=== PATIENT | female | born 1960 | race American Indian/Alaskan Native ===

== ENCOUNTER 2018-09-26 16:50 | Inpatient (IN) | payer BC ==
--- NOTE | 2018-09-26 16:53 | Event Note ---
ED Screening Note ED Screening Note: DYSPHAGIA FOR 4-5 DAYS CAN NOT FIND WORDS PMH NONE RX NONE HR 50 ON NO MEDS OBESE AA 58YO This initial assessment/diagnostic orders/clinical plan/treatment(s) is/are subject to change based on patients health status, clinical progression and re- assessment by fellow clinical providers in the ED. Further treatment and workup at subsequent clinical providers discretion. Patient/guardian urged not to elope from the ED as their condition may be serious if not clinically assessed and managed. Initial orders include: LABS UA XRAY CT HEAD EKG BLOOD GLUCOSE 201
--- NOTE | 2018-09-26 17:48 | XRay Report ---
CHEST 1 VIEW 5:28 PM INDICATION / CLINICAL INFORMATION: Altered mental status. Concern for pneumonia. COMPARISON: None available. FINDINGS: SUPPORT DEVICES: None. HEART / MEDIASTINUM: There is mild cardiomegaly. Pulmonary vasculature is normal. LUNGS / PLEURA: No significant pulmonary or pleural abnormality. No pneumothorax. ADDITIONAL FINDINGS: No significant additional findings. IMPRESSION: No acute findings. Signer Name: Johnny Bonner MD Signed: 09/26/2018 5:43 PM Workstation Name: [id number]
--- NOTE | 2018-09-26 17:49 | Cat Scan Report ---
CT HEAD WITHOUT CONTRAST INDICATION / CLINICAL INFORMATION: Altered Mental Status. TECHNIQUE: All CT scans at this location are performed using CT dose reduction for ALARA by means of automated e xposure control. COMPARISON: None available. FINDINGS: HEMORRHAGE: No evidence of intracranial hemorrhage or extra-axial fluid collection. EXTRA-AXIAL SPACES: Cortical sulci, sylvian fissures and basilar cisterns have an unremarkable appear ance. VENTRICULAR SYSTEM: The ventricular system is of normal size and configuration. CEREBRAL PARENCHYMA: There is evidence of remote small deep infarction in the white matter of the cor rosy radiata and centrum semiovale on the right. There is also evidence of remote small deep infarctio n involving the lateral aspect of the right thalamus. No additional areas of abnormal brain parenchym al attenuation are identified. There is no indication of recent infarction. MIDLINE SHIFT OR HERNIATION: There is no mass effect. CEREBELLUM / BRAINSTEM: Brainstem and cerebellum have an unremarkable appearance. INTRACRANIAL VESSELS:No abnormalities are identified on this noncontrast head CT. ORBITS: visualized portions of the orbits have an unremarkable appearance. SOFT TISSUES of HEAD: No significant abnormality. CALVARIUM: Evaluation of bone windows reveals no abnormalities. PARANASAL SINUSES / MASTOID AIR CELLS: Paranasal sinuses are free from inflammatory mucosal disease. Mastoid air cells are normally pneumatized. ADDITIONAL FINDINGS: None. IMPRESSION: 1. Several remote small deep infarctions are identified. 2. No acute intracranial abnormalities are observed. Signer Name: Dale Orellana MD Signed: 09/26/2018 5:44 PM Workstation Name: [id number]
[2018-09-26 17:56] LABS: Basophils % (Auto) 0.6 % (0.0-1.8); Hematocrit 43.3 % (30.3-42.9); Hemoglobin 14.4 gm/dl (10.1-14.3); Lymphocytes # (Auto) 1.9 K/mm3 (1.2-5.4); Lymphocytes % (Auto) 29.4 % (13.4-35.0); Mean Corpuscular HGB Conc 33 % (30-34); Mean Corpuscular Volume 90 fl (79-97); Monocytes # (Auto) 0.1 K/mm3 (0.0-0.8); Monocytes % (Auto) 1.5 % (0.0-7.3); Platelet Count 154 K/mm3 (140-440); Red Cell Distribution Width 13.4 % (13.2-15.2)
[2018-09-26] MEDS ORDERED: BABY ASPIRIN PO ONE (18:06)
--- NOTE | 2018-09-26 18:08 | Emergency Department Report ---
HPI - General Chief Complaint: Altered Mental Status Time Seen by Provider: 09/26/18 16:52 - HPI HPI: 58-year-old female presents to the emergency department, brought in by her , for concern of a possible stroke. The patient has b een experiencing for 5 days of some confusion, forgetfulness and what sounds like expressive aphasia. The patient has been says that she is unable to find the words for what she is trying to say and while they can understand her she is continuously mixing up words. His has been getting progressively worse and the says that it was not so apparent over the first few days, which is why they waited until today to come in to be seen. She has a past medical history of acid reflux. She has a recent left hip pain for which she saw a Dr Raudel Hinds. They deny any facial droop, numbness or obvious motor deficits. No recent travel or sick contacts at home. She denies any significant headache, blurry vision, fever. ED Past Medical Hx - Past Medical History Previous Medical History?: Yes Hx GERD: Yes - Surgical History Past Surgical History?: Yes Hx Breast Surgery: (reduction) Additional Surgical History: breast reduction, hernia repair - Social History Smoking Status: Never Smoker Substance Use Type: None - Medications Home Medications: Home Medications Medication Instructions Recorded Confirmed Last Taken Type No Known Home Medications [No 10/14/12 09/26/18 Unknown History Reported Home Medications] ED Review of Systems ROS: Stated complaint: POSS STROKE Other details as noted in HPI Comment: All other systems reviewed and negative Constitutional: denies: chills, fever Eyes: denies: eye pain, vision change ENT: denies: ear pain, throat pain Respiratory: denies: cough, shortness of breath Cardiovascular: denies: chest pain, palpitations Gastrointestinal: denies: abdominal pain, vomiting Genitourinary: denies: dysuria, discharge Musculoskeletal: denies: back pain, arthralgia Skin: denies: rash, lesions Neurological: confusion, other (aphasia) Physical Exam - Physical Exam Vital Signs: Vital Signs 09/26/18 16:56 Temperature 98.4 F Pulse Rate 51 L Respiratory 18 Rate Blood Pressure 170/73 O2 Sat by Pulse 99 Oximetry Physical Exam: GENERAL: The patient is well-developed well-nourished. HENT: Normocephalic. Atraumatic. Patient has moist mucous membranes. EYES: Extraocular motions are intact. Pupils equal reactive to light bilaterally. No nystagmus. NECK: Supple. Trachea is midline. CHEST/LUNGS: Clear to auscultation. There is no respiratory distress noted. HEART/CARDIOVASCULAR: Regular. There is no tachycardia. There is no murmur. ABDOMEN: Abdomen is soft, nontender. Patient has normal bowel sounds. There is no abdominal distention. SKIN: Skin is warm and dry. NEURO: The patient is awake, alert, and oriented. The patient is cooperative. The patient has no focal neurologic deficits. Patient has some mild expressive aphasia. No dysarthria. No facial asymmetry. No pronator drift or dysmetria. MUSCULOSKELETAL: There is no tenderness or deformity. There is no limitation range of motion. There is no evidence of acute injury. ED Course Vital Signs 09/26/18 16:56 Temperature 98.4 F Pulse Rate 51 L Respiratory 18 Rate Blood Pressure 170/73 O2 Sat by Pulse 99 Oximetry ED Medical Decision Making - Lab Data Result diagrams: 09/26/18 17:41 09/26/18 17:41 - EKG Data -: EKG Interpreted by Me EKG shows normal: sinus rhythm, axis, intervals, QRS complexes, ST-T waves Rate: bradycardia (52 bpm) - EKG Data When compared to previous EKG there are: no significant change Interpretation: unchanged when compared t (07/22/13) - Radiology Data Radiology results: report reviewed, image reviewed interpreted by me: Chest x-ray does not show any acute process. There are no pleural effusions, obvious pneumonia and there is no pneumothorax. CT HEAD WITHOUT CONTRAST INDICATION / CLINICAL INFORMATION: Altered Mental Status. TECHNIQUE: All CT scans at this location are performed using CT dose reduction for ALARA by means of automated exposure control. COMPARISON: None available. FINDINGS: HEMORRHAGE: No evidence of intracranial hemorrhage or extra-axial fluid collection. EXTRA-AXIAL SPACES: Cortical sulci, sylvian fissures and basilar cisterns have an unremarkable appearance. VENTRICULAR SYSTEM: The ventricular system is of normal size and configuration. CEREBRAL PARENCHYMA: There is evidence of remote small deep infarction in the white matter of the peck radiata and centrum semiovale on the right. There is also evidence of remote small deep infarction involving the lateral aspect of the right thalamus. No additional areas of abnormal brain parenchymal attenuation are identified. There is no indication of recent infarction. MIDLINE SHIFT OR HERNIATION: There is no mass effect. CEREBELLUM / BRAINSTEM: Brainstem and cerebellum have an unremarkable appearance. INTRACRANIAL VESSELS:No abnormalities are identified on this noncontrast head CT. ORBITS: visualized portions of the orbits have an unremarkable appearance. SOFT TISSUES of HEAD: No significant abnormality. CALVARIUM: Evaluation of bone windows reveals no abnormalities. PARANASAL SINUSES / MASTOID AIR CELLS: Paranasal sinuses are free from inflammatory mucosal disease. Mastoid air cells are normally pneumatized. ADDITIONAL FINDINGS: None. IMPRESSION: 1. Several remote small deep infarctions are identified. 2. No acute intracranial abnormalities are observed. - Medical Decision Making This patient presents to the emergency department for evaluation of possible stroke after she has been having some progressively worsening expressive aphasia over the past few days. She has a 1 on the NIH stroke scale. CT of the head wi thout contrast shows some remote lacunar infarcts and no signs of any acute ischemia or hemorrhage. She was given a full dose aspirin after negative CT head. Labs have been unremarkable. Patient will be admitted to the hospital for further evaluation and treatment and was accepted for admission by the hospitalist service. - Differential Diagnosis CVA, TIA, MS, encephalopathy Critical Care Time: Yes Critical care time in (mins) excluding proc time.: 31 Critical care attestation.: If time is entered above; I have spent that time in minutes in the direct care of this critically ill patient, excluding procedure time. Critical care time was spent on this patient during her initial evaluation, multiple re- evaluations, ordering and interpretation of labs and imaging. Critical Care Time: 31 minutes ED Disposition Clinical Impression: Aphasia CVA (cerebral vascular accident) Qualifiers: CVA mechanism: unspecified Qualified Code(s): I63.9 - Cerebral infarction, unspecified Hypertension Qualifiers: Hypertension type: essential hypertension Qualified Code(s): I10 - Essential (primary) hypertension Disposition: OP ADMIT IP TO THIS HOSP Is pt being admited?: Yes Condition: Serious Time of Disposition: 19:00 - Assessment Assessment Interval: Baseline - Level of Consciousness 1a. Level of Consciousness: alert/keenly responsive - LOC Questions 1b. LOC Questions: answers both correctly - LOC Command 1c. LOC Commands: performs tasks correctly - Best Gaze 2. Best Gaze: normal - Visual 3. Visual: no visual loss - Facial Palsy 4. Facial Palsy: normal symmetrical movement - Motor Arm 5a. Motor Arm Left: no drift 5b. Motor Arm Right: no drift - Motor Leg 6a. Motor Leg Left: no drift 6b. Motor Leg Right: no drift - Limb Ataxia 7. Limb Ataxia: absent - Sensory 8. Sensory: normal - Best Language 9. Best Language: mild/moderate aphasia - Dysarthria 10. Dysarthria: normal - Extinction and Inattention 11. Extinction/Inattention: no abnormality - Scoring Total Score: 1 Stroke Severity: Minor Stroke
[2018-09-26 18:23] LABS: Alanine Aminotransferase 21 units/L (7-56); Albumin 4.2 g/dL (3.9-5); BUN/Creatinine Ratio 16; Blood Urea Nitrogen 13 mg/dL (7-17); Calcium 9.6 mg/dL (8.4-10.2); Hemolysis Index 21
[2018-09-26] MEDS ORDERED: TORADOL IV ONE (20:02)
[2018-09-26] MEDS ORDERED: APRESOLINE IV ONE (20:02)
[2018-09-26] MEDS ORDERED: TORADOL ONE (20:08)
[2018-09-26] MEDS ORDERED: APRESOLINE ONE (20:08)
[2018-09-26] MEDS ORDERED: ZOFRAN IV PRN (21:54)
[2018-09-26] MEDS ORDERED: APRESOLINE IV SCH (22:00)
[2018-09-27] MEDS ORDERED: APRESOLINE IV PRN (00:17)
[2018-09-27] MEDS ORDERED: PERCOCET 5/325 PO PRN (00:37)
[2018-09-27] MEDS ORDERED: D50W (25GM) Syringe IV PRN ×2 (06:15→12:16)
--- NOTE | 2018-09-27 06:37 | History and Physical Report ---
CHIEF COMPLAINT: Change in mental status. Other complaint includes speech impairment. HISTORY OF PRESENT ILLNESS: The patient is a 58-year-old female brought in by the because of concern for possible stroke. The patient's said that she has been having change in mental status, going on for 5 days and has not been able to talk effectively with an expressive aphasia. According to the , the patient has some confusion and unable to understand simple conversation and express herself. There is no history of weakness of any part of the body. No history of chest pain, shortness of breath, fever, chills, nausea or vomiting. The said that the patient's condition was not clear to him initially and he waited for some time, but when the patient became more progressively confused and unable to comprehend certain simple discussions, then he became concerned and brought the patient to the Emergency Room. also said that the patient has been having left hip pain and the patient saw primary care doctor who put the patient on some steroid tablets. There is no history of any visual impairment or dizziness. PAST MEDICAL HISTORY: Pertinent for gastroesophageal reflux disease. PAST SURGICAL HISTORY: Pertinent for breast reduction surgery and hernia repair. FAMILY HISTORY: Noncontributory. SOCIAL HISTORY: The patient does not smoke, does not drink alcohol and does not use illicit drugs. MEDICATIONS: The patient is on prednisone tablets. ALLERGIES: There are no known drug allergies. REVIEW OF SYSTEMS: CONSTITUTIONAL: There is no fever, no chills, no diaphoresis. HEENT: There is no headache or sore throat. CARDIOVASCULAR SYSTEM: There is no chest pain or orthopnea. RESPIRATORY SYSTEM: There is no shortness of breath or cough. GASTROINTESTINAL SYSTEM: There is no nausea, no vomiting, no abdominal pain, diarrhea or constipation. NEUROLOGICAL SYSTEM: Change in mental status noted. Difficulty with speech noted. No dizziness, no numbness. MUSCULOSKELETAL SYSTEM: Pain in the left hip joint area, which is chronic noted. No joint swelling. DERMATOLOGICAL SYSTEM: There is no skin rash or itching. GENITOURINARY SYSTEM: There is no dysuria, hematuria, or flank pain. Rest of system review is normal. PHYSICAL EXAMINATION: GENERAL: At the time of exam, the patient was found to be alert, oriented x 3 and not in acute distress. VITAL SIGNS: At the initial time of presentation showed temperature of 98.4 degrees Fahrenheit, pulse of 51, respirations 18, blood pressure 170/73, O2 sat of 99% on room air. HEENT: Showed pupils to be equal, round, reactive to light and accommodating. Extraocular muscles are intact. NECK: Supple with no JVD or carotid bruit. CARDIOVASCULAR SYSTEM: Showed normal first and second heart sounds with no gallops or murmurs. RESPIRATORY SYSTEM: Showed good air entry on both sides of the lungs with no abnormal breath sounds. GASTROINTESTINAL SYSTEM: Showed abdomen to be full, soft, nontender with no organomegaly or rigidity. NEUROLOGICAL SYSTEM: Showed the patient with speech impairment, but no other focal neurological deficit. MUSCULOSKELETAL SYSTEM: Showed no joint swelling or tenderness. DERMATOLOGICAL SYSTEM: Showed no skin rash. GENITOURINARY SYSTEM: Showing no costovertebral angle tenderness. PERTINENT LABORATORY AND IMAGING STUDIES: The patient had CT of the head without contrast done and this shows several remote small deep infarctions with no acute intracranial abnormalities. The patient also had chest x-ray done and chest x-ray shows no acute finding. Lab results, the patient has CBC done with normal white count, elevated hemoglobin of 14.4 and elevated hematocrit level of 43.3 with normal MCV. The patient's chemistry shows a slight increase in glucose level of 201. The patient's toxicology screen shows unremarkable alcohol level. DIAGNOSES: 1. Cerebrovascular accident. 2. Hypertension. 3. Hyperglycemia. 4. Speech impairment. PLAN OF CARE: 1. The patient will be admitted to telemetry. 2. The patient will have MRI of the brain without contrast done this morning. 3. The patient will have 2D echo and bilateral carotid Doppler done this morning. 4. The patient will have speech therapy consult done this morning for evaluation and treatment and will also have a physical therapy consult for evaluation and treatment this morning. 5. The patient will be n.p.o. until swallow test is passed. 6. The patient will be on aspirin 325 mg by mouth daily and will be on IV hydralazine 10 mg every 4 hours for blood pressure of 200/110 or more since the patient's blood pressure has to be treated with permissive hypertensive effect applied. 7. The patient DVT prophylaxis will be through sequential compressive device. 8. The patient will be on Accu-Chek q.4 hours followed by low-dose sliding scale using regular insulin coverage. JOB# [id number] OCN/NTS
[2018-09-27 06:50] LABS: Bacteria,Urine 1+ /HPF (Negative); Bilirubin,Urine NEG (Negative); Blood,Urine NEG (Negative); Color,Urine Yellow (Yellow); Protein,Urine <15 mg/dL mg/dL (Negative); Urobilinogen,Urine < 2.0 mg/dL (<2.0); WBC,Urine < 1.0 /HPF (0.0-6.0)
--- NOTE | 2018-09-27 11:57 | Vascular Lab Report ---
CVA TECHNICAL DATA: Imaging was performed from the base of the neck to the skull base using duplex sonography and color-f low imaging with emphasis on the carotid and vertebral arterial systems. RIGHT CAROTID ARTERY: The right internal carotid artery, right external carotid, and right common carotid artery all well i mauro and patent. Mild atherosclerotic plaque present at the carotid bifurcation. Right common carotid artery peak systolic velocity 98 cm per second Right internal carotid artery peak systolic velocity 111 cm per second Right internal carotid artery end diastolic velocity 30 cm per second Right internal carotid artery/right common carotid artery ratio 0.9 Vertebral artery flow is antegrade. LEFT CAROTID ARTERY The left internal carotid artery, left external carotid, and left common carotid artery all well imag ed and patent. Mild atherosclerotic plaque present at the carotid bifurcation. Left common carotid artery peak systolic velocity 80 cm per second Left internal carotid artery peak systolic velocity 92 cm per second Left internal carotid artery end diastolic velocity 29 cm per second Left internal carotid artery/right common carotid artery ratio 0.8 Normal antegrade flow of the vertebral arteries. IMPRESSION: 1 Sonographic NASCET Index This study proposed the incorporation of distal ICA flow velocity information on the conventional car otid Doppler study improving the diagnostic accuracy of PSV 1. 0 to15% diameter reduction internal carotid arteries <15% stenosis: deceleration spectral broadening with a peak systolic velocity (PSV) <125 cm/s. . 2. Normal common carotid arteries. 3. Normal external carotid arteries. 4. Antegrade flow both vertebral arteries. Sonographic NASCET Index This study proposed the incorporation of distal ICA flow velocity information on the conventional car otid Doppler study improving the diagnostic accuracy of PSV 1. * <15% stenosis: * deceleration spectral broadening with a peak systolic velocity (PSV) <125 cm/s * 16-49% stenosis: * pansystolic spectral broadening with a PSV <125 cm/s * 50-69% stenosis: * pansystolic spectral broadening with a PSV of >125 cm/s * and * end diastolic velocity (EDV) <110 cm/s or ICA/CCA PSV ratio >2 but <4 * 70-79% stenosis: * pansystolic spectral broadening with PSV >270 cm/s * or * EDV >110 cm/s * or * ICA/CCA PSV ratio >4 * 80-99% stenosis: EDV >140 cm/s * complete occlusion: no flow; terminal thump Signer Name: Nikolay Silverman MD Signed: 09/27/2018 11:52 AM Workstation Name: [id number]
[2018-09-27] MEDS ORDERED: D50W (25GM) Syringe IV ONE (12:15)
[2018-09-27] MEDS: ASPIRIN PO SCH (12:21)
--- NOTE | 2018-09-27 14:01 | Magnetic Resonance Report ---
MRI BRAIN WITHOUT CONTRAST INDICATION / CLINICAL INFORMATION: CVA. Aphasia TECHNIQUE: Multiplanar, multisequence MR images of the brain were obtained. COMPARISON: Head CT 09/26/2018. FINDINGS: BRAIN / INTRACRANIAL CONTENTS: Innumerable microhemorrhages are demonstrated in both cerebral hemispheres. Many of these are periphe ral in location being identified at the lopes-white junctions of both cerebral hemispheres. Findings s uggest the possibility of microhemorrhage secondary to amyloid angiopathy. There is evidence of remote small deep infarctions involving the judson to the right of the midline, th e right thalamus and the right peck radiata. Elsewhere microvascular ischemic changes are demonstra debbi in the white matter of both cerebral hemispheres. Ventricles and cortical sulci are normal in size and configuration. There is no mass effect. No evide nce of recent intracranial hemorrhage or extra-axial fluid collection is seen. There is no indication of remote cortical infarction. Diffusion weighted scans are negative. There is no indication of acut e ischemic injury. The brainstem and cerebellum have an unremarkable appearance. CRANIOCERVICAL JUNCTION: No abnormalities are identified at the craniocervical junction. VASCULAR FLOW-VOIDS: Normal flow-voids are present within the major intracranial vessels. ORBITS: The orbits have an unremarkable appearance. SINUSES / MASTOIDS: There is no indication of inflammatory disease in the paranasal sinuses or mastoi d air cells. ADDITIONAL FINDINGS: None. IMPRESSION: 1. Multiple microhemorrhages in a distribution suggesting a diagnosis of amyloid angiopathy. 2. Several remote small deep infarctions are identified. These are observed in the judson, right thalam us and right peck radiata. 3. No acute intracranial abnormalities are identified. Signer Name: Dale Orellana MD Signed: 09/27/2018 1:56 PM Workstation Name: [id number]
--- NOTE | 2018-09-27 15:58 | Consultation ---
History of Present Illness Consult date: 09/27/18 Requesting physician: DAVID BUSTILLO Consult reason: bradycardia History of present illness: Ms. Us is a 58 y/o female [facility] with stroke- like symptoms over the past five days. She follows with Dr. Gulshan Brambila in our office. She has a history of hypertension and had several CVAs in the past. Per her , the patient experienced worsening confusion, forgetfulness and expressive aphasia. CT and MRI revealed multiple vascular abnormalities c/w amyloid angiopathy. A carotid study was negative. Overnight, the patient experienced sinus bradycardia with rates in the 30s. On examination, she is in sinus bradycardia with rates in the 50s. She denies palpitations or dizziness. An echocardiogram on 09/27/18 found an EF of 60 to 65 percent, mild concentric LVH and no evidence of a shunt. Past History Past Medical History: stroke Medications and Allergies Allergies Allergy/AdvReac Type Severity Reaction Status Date / Time No Known Allergies Allergy Verified 09/26/18 18:28 Home Medications Medication Instructions Recorded Confirmed Last Taken Type No Known Home Medications [No 10/14/12 09/26/18 Unknown History Reported Home Medications] Active Meds: Active Medications Aspirin (Aspirin) 325 mg PO QDAY MAYA Last Admin: 09/27/18 12:21 Dose: 325 mg Documented by: Dextrose (D50w (25gm) Syringe) 50 ml IV PRN PRN PRN Reason: Hypoglycemia Hydralazine HCl (Apresoline) 10 mg IV Q4HR PRN PRN Reason: HTN>=200/110 Insulin Human Lispro (Humalog) 0 unit SUB-Q [facility]; Protocol Ondansetron HCl (Zofran) 4 mg IV Q8H PRN PRN Reason: Nausea And Vomiting Oxycodone/Acetaminophen (Percocet 5/325) 1 tab PO Q6H PRN PRN Reason: Pain, Moderate (4-6) Last Admin: 09/27/18 01:34 Dose: 1 tab Documented by: Review of Systems All systems: negative Neurological: aphasia Physical Examination Vital Signs Temp Pulse Resp BP Pulse Ox 98.4 F 51 L 18 170/73 99 09/26/18 16:56 09/26/18 16:56 09/26/18 16:56 09/26/18 16:56 09/26/18 16:56 General appearance: no acute distress HEENT: Positive: PERRL Neck: Positive: neck supple Cardiac: Positive: Regular Rhythm Lungs: Positive: Normal Exam Neuro: Positive: Other (deferred) Abdomen: Positive: Unremarkable Female genitourinary: deferred Skin: Positive: Clear Extremities: Present: normal Results 09/26/18 17:41 09/26/18 17:41 Cardiac Enzymes 09/26/18 Range/Units 17:41 AST 26 (5-40) units/L CBC 09/26/18 Range/Units 17:41 WBC 6.5 (4.5-11.0) K/mm3 RBC 4.80 (3.65-5.03) M/mm3 Hgb 14.4 H (10.1-14.3) gm/dl Hct 43.3 H (30.3-42.9) % Plt Count 154 (140-440) K/mm3 Lymph # 1.9 (1.2-5.4) K/mm3 [place] # 0.1 (0.0-0.8) K/mm3 Eos # 0.0 (0.0-0.4) K/mm3 Baso # 0.0 (0.0-0.1) K/mm3 Comprehensive Metabolic Panel 09/26/18 Range/Units 17:41 Sodium 140 (137-145) mmol/L Potassium 4.2 (3.6-5.0) mmol/L Chloride 103.1 (98-107) mmol/L Carbon Dioxide 24 (22-30) mmol/L BUN 13 (7-17) mg/dL Creatinine 0.8 (0.7-1.2) mg/dL Glucose 135 H (65-100) mg/dL Calcium 9.6 (8.4-10.2) mg/dL AST 26 (5-40) units/L ALT 21 (7-56) units/L Alkaline Phosphatase 130 H (35-129) units/L Total Protein 8.3 H (6.3-8.2) g/dL Albumin 4.2 (3.9-5) g/dL - Imaging and Cardiology Echo: pending, report reviewed (09/27/18: EF 60-65%, mild LVH, no evidence of shunt) EKG interpretations - Telemetry EKG Rhythm: Sinus Bradycardia Assessment and Plan Ms. Us is a 58 y/o female admitted with stroke-like symptoms. Overnight, she developed sinus bradycardia with rates in the 30s. We recommend monitoring on telemetry and evaluating for symptomatic bradycardia. She may also benefit from an event monitor as an outpatient. The patient was evaluated by Dr. Good, who performed the assessment and developed the plan of care. - Patient Problems (1) CVA (cerebral vascular accident) Current Visit: Yes Status: Acute Qualifiers: CVA mechanism: unspecified Qualified Code(s): I63.9 - Cerebral infarction, unspecified (2) Sinus bradycardia Current Visit: Yes Status: Acute (3) Aphasia Current Visit: Yes Status: Acute (4) Hypertension Current Visit: Yes Status: Chronic Qualifiers: Hypertension type: essential hypertension Qualified Code(s): I10 - Essential (primary) hypertension
--- NOTE | 2018-09-27 16:08 | Progress Note ---
Assessment and Plan Assessment and plan: Patient is a 58 yo woman with a history of GERD, not taking any chronic medication who presents to [facility] ED due to AMS x 5 days with confusion, forgetfulness and expressive aphasia. Word finding difficulties, so brought her to ED, * 2D ECHO: mild concentric LVH, est EF 60-65%, normal dd filing, trace MR, trace TR, no cardiac shunt * MRI brain with contrast IMPRESSION: 1. Multiple microhemorrhages in a distribution suggesting a diagnosis of amyloid angiopathy. 2. Several remote small deep infarctions are identified. These are observed in the judson, right thalamus and right peck radiata. 3. No acute intracranial abnormalities are identified. * pCXR Impression: No acute findings * CT head without contrast IMPRESSION: 1. Multiple microhemorrhages in a distribution suggesting a diagnosis of amyloid angiopathy. 2. Several remote small deep infarctions are identified. These are observed in the judson, right thalamus and right peck radiata. 3. No acute intracranial abnormalities are identified. * Carotid U/S unremarkable. -AMS most likely Acute metabolic encephalopathy, Ruled out Acute CVA, ?vascular dementia: will consult Neurologist -Severe Bradycardia, HR as low as 36: consulted Cardiology, continue telemetry -Hyperglycemia, BG >201 followed by hypoglycemia: treat with dextrose and monitor closely, check A1C -Accelerated uncontrolled hypertension, new onset: treat with anti-hyper tensives, low salt diet -Expressive Aphasia? consulted Neurology History Interval history: Patient was seen and examined. Follow-up on current diagnosis of AMS. No overnight events reported to me. Patient denies any chest pain, shortness breath, nausea/vomiting or severe headaches. Imaging, nursing note, chart, labs and old chart reviewed. Discussed with patient. Hospitalist Physical - Physical exam Narrative exam: Gen: WDWN, NAD, Awake, Alert, Orientated x 2 HEENT: NCAT, EOMI, PERRL, OP Clear Neck: supple, no adenopathy, no thyromegaly, no JVD CVS/Heart: bradycardia, normal S1S2, pulses present bilaterally Chest/Lungs: CTA B, Symmetrical chest expansion, good air entry bilaterally GI/Abdomen: soft, NTND, good bowel sounds, no guarding or rebound /Bladder: no suprapubic tenderness, no CVA or paraspinal tenderness Extermity/Skin: no c/c/e, no obvious rash MSK: FROM x 4 Neuro: CN 2-12 grossly intact, expressive aphasia Psych: calm - Constitutional Vitals: Temp Pulse Resp BP Pulse Ox 98.4 F 42 L 18 150/78 98 09/27/18 07:31 09/27/18 07:31 09/27/18 07:31 09/27/18 07:31 09/27/18 07:31 General appearance: Present: no acute distress Results - Labs CBC & Chem 7: 09/26/18 17:41 09/26/18 17:41 Labs: Laboratory Last Values WBC 6.5 K/mm3 (4.5-11.0) 09/26/18 17:41 RBC 4.80 M/mm3 (3.65-5.03) 09/26/18 17:41 Hgb 14.4 gm/dl (10.1-14.3) H 09/26/18 17:41 Hct 43.3 % (30.3-42.9) H 09/26/18 17:41 MCV 90 fl (79-97) 09/26/18 17:41 MCH 30 pg (28-32) 09/26/18 17:41 MCHC 33 % (30-34) 09/26/18 17:41 RDW 13.4 % (13.2-15.2) 09/26/18 17:41 Plt Count 154 K/mm3 (140-440) 09/26/18 17:41 Lymph % (Auto) 29.4 % (13.4-35.0) 09/26/18 17:41 [place] % (Auto) 1.5 % (0.0-7.3) 09/26/18 17:41 Eos % (Auto) 0.0 % (0.0-4.3) 09/26/18 17:41 Baso % (Auto) 0.6 % (0.0-1.8) 09/26/18 17:41 Lymph # 1.9 K/mm3 (1.2-5.4) 09/26/18 17:41 [place] # 0.1 K/mm3 (0.0-0.8) 09/26/18 17:41 Eos # 0.0 K/mm3 (0.0-0.4) 09/26/18 17:41 Baso # 0.0 K/mm3 (0.0-0.1) 09/26/18 17:41 Seg Neutrophils % 68.5 % (40.0-70.0) 09/26/18 17:41 Seg Neutrophils # 4.4 K/mm3 (1.8-7.7) 09/26/18 17:41 VBG pH 7.362 (7.320-7.420) 09/26/18 17:49 Sodium 140 mmol/L (137-145) 09/26/18 17:41 Potassium 4.2 mmol/L (3.6-5.0) 09/26/18 17:41 Chloride 103.1 mmol/L (98-107) 09/26/18 17:41 Carbon Dioxide 24 mmol/L (22-30) 09/26/18 17:41 17 mmol/L 09/26/18 17:41 BUN 13 mg/dL (7-17) 09/26/18 17:41 0.8 mg/dL (0.7-1.2) 09/26/18 17:41 Estimated GFR > 60 ml/min 09/26/18 17:41 16 % 09/26/18 17:41 Glucose 135 mg/dL (65-100) H 09/26/18 17:41 POC Glucose 63 (70-105) L 09/27/18 12:22 Negative (Negative) 09/26/18 17:41 Calcium 9.6 mg/dL (8.4-10.2) 09/26/18 17:41 0.50 mg/dL (0.1-1.2) 09/26/18 17:41 AST 26 units/L (5-40) 09/26/18 17:41 ALT 21 units/L (7-56) 09/26/18 17:41 130 units/L (35-129) H 09/26/18 17:41 < 0.010 ng/mL (0.00-0.029) 09/26/18 17:41 < 0.010 ng/mL (0.00-0.029) 09/26/18 17:41 8.3 g/dL (6.3-8.2) H 09/26/18 17:41 4.2 g/dL (3.9-5) 09/26/18 17:41 1.0 % 09/26/18 17:41 TSH 0.406 mlU/mL (0.270-4.200) 09/26/18 17:50 Yellow (Yellow) 09/27/18 06:22 Clear (Clear) 09/27/18 06:22 6.0 (5.0-7.0) 09/27/18 06:22 Ur Specific [place] 1.008 (1.003-1.030) 09/27/18 06:22 <15 mg/dl mg/dL (Negative) 09/27/18 06:22 Neg mg/dL (Negative) 09/27/18 06:22 Neg mg/dL (Negative) 09/27/18 06:22 Neg (Negative) 09/27/18 06:22 Neg (Negative) 09/27/18 06:22 Neg (Negative) 09/27/18 06:22 < 2.0 mg/dL (<2.0) 09/27/18 06:22 Ur Leukocyte Esterase Neg (Negative) 09/27/18 06:22 < 1.0 /HPF (0.0-6.0) 09/27/18 06:22 1.0 /HPF (0.0-6.0) 09/27/18 06:22 U Epithel Cells (Auto) < 1.0 /HPF (0-13.0) 09/27/18 06:22 1+ /HPF (Negative) 09/27/18 06:22 Plasma/Serum Alcohol < 0.01 % (0-0.07) 09/26/18 17:50 Active Medications - Current Medications Current Medications: Generic Name Dose Route Start Last Admin Trade Name Silvianoq PRN Reason Stop Dose Admin Aspirin 325 mg 09/27/18 10:00 09/27/18 12:21 Aspirin PO 325 mg QDAY MAYA Administration Dextrose 50 ml 09/27/18 12:16 D50w (25gm) Syringe IV PRN PRN Hypoglycemia Hydralazine HCl 10 mg 09/27/18 00:17 Apresoline IV Q4HR PRN HTN>=200/110 Insulin Human Lispro 0 unit 09/27/18 16:30 Humalog SUB-Q [facility] Protocol Ondansetron HCl 4 mg 09/26/18 21:54 Zofran IV Q8H PRN Nausea And Vomiting Oxycodone/Acetaminophen 1 tab 09/27/18 00:37 09/27/18 01:34 Percocet 5/325 PO 1 tab Q6H PRN Administration Pain, Moderate (4-6)
[2018-09-27] MEDS: HumaLOG SUB-Q SCH ×3 (18:44→21:35)
--- NOTE | 2018-09-27 18:58 | Progress Note ---
Subjective Date of service: 09/27/18 Interval history: see my note on the patient full dictation MRI area of celar cut cortical ischemia left superior temporal gyrus and distal infarcts as well there is basically OK ECHO and carotid u/s vessel occlusive disease in the MCA left exam shows severe expressive aphasia with word finding problems Objective - Vital Sign Vital Signs - 12hr 09/27/18 09/27/18 07:31 18:42 Temperature 98.4 F 98.2 F Pulse Rate 42 L 48 L Respiratory 18 20 Rate Blood Pressure 150/78 Blood Pressure 138/62 [Right] O2 Sat by Pulse 98 99 Oximetry - Laboratory Findings CBC and BMP: 09/26/18 17:41 09/26/18 17:41 Abnormal Lab Findings: Abnormal Labs 09/26/18 09/26/18 09/26/18 17:03 17:41 17:41 Hgb 14.4 H Hct 43.3 H Glucose 135 H POC Glucose 201 H Alkaline Phosphatase 130 H Total Protein 8.3 H 09/27/18 09/27/18 12:22 18:32 Hgb Hct Glucose POC Glucose 63 L 154 H Alkaline Phosphatase Total Protein
--- NOTE | 2018-09-28 00:56 | Consultation ---
HISTORY OF PRESENT ILLNESS: This is a 58-year-old female that presents to [facility] on September 20, 2018. She presented with a primary history of some confusion, difficulty with orientation, had spent several days not feeling quite like herself and not being able to speak. I have had the chance to review her MRI scan of the brain. It shows a very large area of ischemia on the left medial superotemporal gyrus and posterior infarction very significant for what is likely a stroke related to no flow. In viewing the carotid arteries, the left internal carotid are all well imaged and patent. She has no atherosclerotic clot present in the left bifurcation with no ulcer. The patient has had an echocardiogram and I have reviewed those results and does show no valvular disease, a slight concentric left ventricular hypertrophy, ejection fraction of 60-65%. No evidence of any septal defect is noted. The patient's left atrium is normal. There is no visible thrombus present. The patient does have on admission problems with speech, slowness of thought, difficulty with movements. She has clinical evidence of likely a stroke. Examination on my part does show the patient has a very prominent naming problem when she attempts to speak. She has evidence of a very slight anomic aphasia. I would test her with a number of named objects and she would get only half of them right. Interestingly, she could relatively well, but she could not actually name the objects by looking at it, but would instead read the description of it off a package which is highly interesting variation of aphasia. Her speech is quite slowed. She has occasional word substitution errors, some speech apraxia. Cranial nerves are intact. Dry Sand Molder strength is equal. Motor tone is normal. Visual collier are full. Full bus girl strength is present. She moves all extremities well, do not find any focal weakness. The patient did consistently mix words up when I spoke to her. EKG shows sinus rhythm and there is no atrial fibrillation and unchanged from the EKG present on July 22, 2013. This patient does have, on looking at the MRI scan, a very noticeable cortical ischemia in the left temporal lobe anteriorly and some lesions present distally, which would almost indicate that she has had probably several infarcts. I would treat her with aspirin, Plavix and cholesterol lowering agent. It is noted that her blood pressure was elevated on admission of 170/73. This is likely a hypertensive stroke with some vascular component, not small vessel at least, but large branch vessel of the MCA. PLAN: Further assessment. JOB# [id number] CARLINE/BONI
[2018-09-28] MEDS: HumaLOG SUB-Q SCH ×2 (08:00→12:00)
[2018-09-28] MEDS: ASPIRIN PO SCH (09:42)
--- NOTE | 2018-09-28 13:54 | Progress Note ---
Assessment and Plan The patient remains in intermittent asymptomatic sinus bradycardia that predominantly occurs at night. We recommend an event monitor as an outpatient. We have nothing further to add from a cardiac perspective and will sign off. Follow up with Dr. Good in 7-10 days. Call for an appointment. The patient has been evaluated by Dr. Good, who performed the assessment and developed the plan of care. - Patient Problems (1) CVA (cerebral vascular accident) Current Visit: Yes Status: Acute Qualifiers: CVA mechanism: unspecified Qualified Code(s): I63.9 - Cerebral infarction, unspecified (2) Sinus bradycardia Current Visit: Yes Status: Acute (3) Aphasia Current Visit: Yes Status: Acute (4) Hypertension Current Visit: Yes Status: Chronic Qualifiers: Hypertension type: essential hypertension Qualified Code(s): I10 - Essential (primary) hypertension Subjective Date of service: 09/28/18 Interval history: The patient is lying in bed in NAD. Interim bradycardia noted on telemetry, but this is asymptomatic. Objective Last Vital Signs Temp 98.4 F 09/28/18 07:31 Pulse 52 L 09/28/18 10:00 Resp 20 09/28/18 10:00 BP 147/61 09/28/18 07:31 Pulse Ox 98 09/28/18 07:31 - Physical Examination HEENT: Positive: PERRL Neck: Positive: neck supple Cardiac: Positive: Regular Rhythm Lungs: Positive: Normal Exam Neuro: Positive: Other (deferred) Abdomen: Positive: Unremarkable /Rectal: Other (deferred) Skin: Positive: Clear Musculoskeletal: No Pain Extremities: Present: normal - Imaging and Cardiology Echo: pending, report reviewed (09/27/18: EF 60-65%, mild LVH, no evidence of shunt) - Telemetry EKG Rhythm: Sinus Bradycardia
--- NOTE | 2018-09-28 16:49 | Discharge Summary ---
Providers - Providers Date of Admission: 09/26/18 18:41 Date of discharge: 09/28/18 Attending physician: DAVID BUSTILLO 09/27/18 06:00 Physical Therapy Evaluation and Treat [CONS] Routine Comment: Reason For Exam: CVA Speech Therapy Evaluation and Treat [CONS] Routine Reason For Exam: SPEECH IMPAIRMENT 09/27/18 12:18 Consult to Physician [CONS] Routine Comment: Consulting Provider: NIKA GARRIDO Physician Instructions: Reason For Exam: bradycardia 09/27/18 13:27 Midline [Consult to PICC Line RN] [CONS] Stat Reason For Exam: difficult stick Type Line:: Midline 09/27/18 16:20 Consult to Physician [CONS] Routine Comment: Consulting Provider: BALTAZAR SHABAZZ Physician Instructions: Reason For Exam: expressive aphasia, ? cva [facility] Condition: Stable Hospital course: Patient is a 58 yo woman with a history of GERD, not taking any chronic medica tion who presents to [facility] ED due to AMS x 5 days with confusion, forgetfulness and expressive aphasia. Word finding difficulties, so brought her to ED, * 2D ECHO: mild concentric LVH, est EF 60-65%, normal dd filing, trace MR, trace TR, no cardiac shunt * MRI brain with contrast IMPRESSION: 1. Multiple microhemorrhages in a distribution suggesting a diagnosis of amyloid angiopathy. 2. Several remote small deep infarctions are identified. These are observed in the judson, right thalamus and right peck radiata. 3. No acute intracranial abnormalities are identified. * pCXR Impression: No acute findings * CT head without contrast IMPRESSION: 1. Multiple microhemorrhages in a distribution suggesting a diagnosis of amyloid angiopathy. 2. Several remote small deep infarctions are identified. These are observed in the judson, right thalamus and right peck radiata. 3. No acute intracranial abnormalities are identified. * Carotid U/S unremarkable. Discharge Diagnoses -Acute CVA, per Dr. Shabazz -Severe Bradycardia, HR as low as 36: consulted Cardiology, continue telemetry, need Event monitor as outpatient d/w Dr. Garrido -Hyperglycemia, BG >201 followed by hypoglycemia: treat with dextrose and monitor closely, check A1C -Accelerated uncontrolled hypertension, new onset: treat with anti-hypert ensives, low salt diet -Expressive Aphasia Patient is adamant about going home, she does not want to stay for PT/OT or rehab assessment. Disposition: DC-01 TO HOME OR SELFCARE Time spent for discharge: 33 minutes Core Measure Documentation - Palliative Care Palliative Care/ Comfort Measures: Not Applicable - Core Measures Any of the following diagnoses?: stroke - VTE Discharge Requirements Deep Vein Thrombosis/Pulmonary Embolism Present on Admission: No Has pt received <5 days of overlap therapy or INR<2.0: No Anticoagulant overlap therapy prescribed at discharge: No Contraindication No Overlap Therapy order at DC: Not Indicated - Stroke Discharge Requirements Statin for LDL = or >70 mg/dl on DC: Yes Anticoag for atrial fib/atrial flutter: Not Applicable Reason for no anticoag for AF/F on DC: Not Indicated Antithrombotic for ischemic stroke: Yes Exam - Physical Exam Narrative exam: Gen: WDWN, NAD, Awake, Alert, Orientated x 2 HEENT: NCAT, EOMI, PERRL, OP Clear Neck: supple, no adenopathy, no thyromegaly, no JVD CVS/Heart: bradycardia, normal S1S2, pulses present bilaterally Chest/Lungs: CTA B, Symmetrical chest expansion, good air entry bilaterally GI/Abdomen: soft, NTND, good bowel sounds, no guarding or rebound /Bladder: no suprapubic tenderness, no CVA or paraspinal tenderness Extermity/Skin: no c/c/e, no obvious rash MSK: FROM x 4 Neuro: CN 2-12 grossly intact, expressive aphasia Psych: calm - Constitutional Vitals: Temp Pulse Resp BP Pulse Ox 98.4 F 46 L 20 147/61 96 09/28/18 07:31 09/28/18 12:24 09/28/18 10:00 09/28/18 07:31 09/28/18 12:24 Plan Activity: other (no strenous activity unless cleared by Associate Buyer and Neurologist) Diet: low salt Additional Instructions: Call Associate Buyer Dr. Garrido at for an appointment. Need Event Monitor. D/W Dr. Garrido and Dr. Shabazz regarding vacation trip prior to going. Check you A1C with PCP to test for Diabetes mellitus [facility] [Primary Care Provider] - 7 Days NIKA GARRIDO MD [Staff Physician] - 7 Days BALTAZAR SHABAZZ MD [Staff Physician] - 7 Days Prescriptions: AtorvaSTATin [Lipitor] 40 mg PO QHS #30 tablet Aspirin 325 mg PO QDAY #30 tablet
[2018-09-28 16:51] VITALS: BP 145/66
[2018-09-28 18:34] LABS: Chol/HDL Ratio 3.2 %
== END 2018-09-28 18:33 | disposition home or self-care (01) | DRG 65 ==
LOC: ED 16:50 → 4A 18:41
PROVIDERS: ADMIT Internal Medicine; ATTEND Internal Medicine
PROC: 05HY33Z Insertion of Infusion Device into Upper Vein, Percutaneous Approach (ICD-10-PCS; principal; 2018-09-27)
DX: I63.9 Cerebral infarction, unspecified (principal); E85.4 Organ-limited amyloidosis; R47.01 Aphasia; I10 Essential (primary) hypertension; I68.0 Cerebral amyloid angiopathy; R29.701 NIHSS score 1; R47.81 Slurred speech; K21.9 Gastro-esophageal reflux disease without esophagitis; R73.9 Hyperglycemia, unspecified; R00.1 Bradycardia, unspecified; E16.2 Hypoglycemia, unspecified
CPT/HCPCS: 36415; 70450; 70551; 71045; 80053; 80061; 80320; 81001; 82010; 82805; 82962; 84443; 84484; 85025; 93005; 93010; 93306; 93880; G0378; G0480; J0360; J1885

== ENCOUNTER 2019-04-23 07:51 | Day surgery (SDC) | payer BC ==
[~2019-04-23 07:51] MED LIST: BUPIVACAINE/PF (0.5%) 5 MG/1 ML 30 ML VIAL INFILTRATI ONE; LIDOCAINE (1%) 10 MG/1 ML VIAL 20 ML MDV INFILTRATI ONE
[2019-04-23] MEDS ORDERED: BUPIVACAINE/PF (0.5%) 5 MG/1 ML 30 ML VIAL INFILTRATI ONE ×2 (07:58→10:33)
[2019-04-23] MEDS ORDERED: LIDOCAINE (1%) 10 MG/1 ML VIAL 20 ML MDV ONE (07:58)
[2019-04-23] MEDS ORDERED: LIDOCAINE (1%) 10 MG/1 ML VIAL 20 ML MDV INFILTRATI ONE (10:07)
[2019-04-23 12:23] VITALS: BP 142/62
--- NOTE | 2019-04-23 12:26 | Fluoroscopy Report ---
Fluoroscopy guidance needle placement HISTORY: Chronic left back pain. FINDINGS: 1.02 minutes of fluoroscopy time was provided by radiology during lumbar facet/nerve block by the [facility] surgeon. 2 fluoroscopic images of the lumbar spine are presented demonstrating needle placeme nt just inferior to facet joints L1-2, L2-3, L3-4 and L4-5 on the left side. The lumbar vertebra are normal in alignment with mild degenerative changes. Please correlate with the procedural report by Dr Riky Edwards as needed. Signer Name: Jarvis Bowers Jr, MD Signed: 04/23/2019 12:22 PM Workstation Name: [id number]
--- NOTE | 2019-04-29 13:19 | Procedure Note ---
Date of procedure: 04/23/19 Pre-op diagnosis: Low back pain Post-op diagnosis: same Procedure: Lumbar facet blocks at left L2 through L5 Procedure The patient was brought to the OR and placed prone onto the OR table, the lumbar spine was prepped and draped in the usual sterile manner. A timeout procedure was done to identify the patient and the correct levels of nerve block being performed the patient was awake during the procedure. Using C-arm fluoroscopy the L5 through L2 levels were visualized in both the PA and 45 oblique views 20-gauge spinal needles were inserted again under direct fluoroscopic control after placing the spinal needles and the correct position and Marcaine injection was performed using 1% without epinephrine. The patient tolerated the procedure and no complications Anesthesia: local Surgeon: ANA REYES Estimated blood loss: minimal Pathology: none Condition: stable Disposition: observation
== END 2019-04-23 07:52 | disposition home or self-care (01) ==
LOC: OR 07:51
PROVIDERS: ATTEND Orthopaedic Surgery
DX: M54.5 Low back pain (principal); M47.816 Spondylosis without myelopathy or radiculopathy, lumbar region; I10 Essential (primary) hypertension; K21.9 Gastro-esophageal reflux disease without esophagitis; F32.9 Major depressive disorder, single episode, unspecified; F41.9 Anxiety disorder, unspecified; Z79.899 Other long term (current) drug therapy; Z79.82 Long term (current) use of aspirin; Z86.718 Personal history of other venous thrombosis and embolism; Z90.710 Acquired absence of both cervix and uterus; Z72.89 Other problems related to lifestyle; Z98.890 Other specified postprocedural states; Z86.2 Personal history of diseases of the blood and blood-forming organs and certain disorders involving the immune mechanism; Z86.73 Personal history of transient ischemic attack (TIA), and cerebral infarction without residual deficits
CPT/HCPCS: 77002

== ENCOUNTER 2019-06-04 06:55 | Day surgery (SDC) | payer BC ==
--- NOTE | 2019-06-04 07:48 | Anesthesia Consultation ---
Anesthesia Consult and Med Hx Date of service: 06/04/19 - Airway Anesthetic Teeth Evaluation: Good ROM Head & Neck: Adequate Mental/Hyoid Distance: Adequate Mallampati Class: Class II Intubation Access Assessment: Probably Good - Pre-Operative Health Status ASA Pre-Surgery Classification: ASA3 Proposed Anesthetic Plan: MAC - Pulmonary Hx Smoking: No Hx Asthma: No Hx Sleep Apnea: No (AMNA PRE SCREEN LOW RISK) - Cardiovascular System Hx Hypertension: No Hx Pacemaker: No Hx Internal Defibrillator: No - Central Nervous System Hx Neuromuscular Disorder: No Hx Seizures: No CVA: Yes (09/2018-SPEECH SL SLURRED,POOR MEMORY) Hx Back Pain: Yes (NERVE BLOCK 04/23/19) Hx Psychiatric Problems: Yes (anxiety/depression) - Gastrointestinal Hx Gastroesophageal Reflux Disease: Yes - Endocrine Hx Renal Disease: No Hx Liver Disease: Yes (CONGENTIAL HEP B) Hx Thyroid Disease: No - Hematic Hx Anemia: Yes (NOT RECENT) - Other Systems Hx Alcohol Use: Yes (glass of wine occassionally) Hx Cancer: No Hx Obesity: Yes (s/p gastric bypass 2009)
--- NOTE | 2019-06-04 07:49 | Anesthesia Day of Surgery ---
Anesthesia Day of Surgery - Day of Surgery Patient Examined: Yes Patient H&P Reviewed: Yes Patient is NPO: Yes
[2019-06-04] MEDS ORDERED: LACTATED RINGERS 1,000 ML IV SCH (08:00)
[2019-06-04] MEDS ORDERED: MIDAZOLAM 2 MG/2 ML INJ IV NR (08:00)
[2019-06-04] MEDS ORDERED: FAMOTIDINE 20 MG/2 ML INJ IV NR (08:00)
[2019-06-04] MEDS ORDERED: MIDAZOLAM 2 MG/2 ML INJ ONE (10:05)
[2019-06-04] MEDS ORDERED: propofoL 200 MG/20 ML VIAL IV ONE (10:05)
[2019-06-04] MEDS ORDERED: fentaNYL 100 MCG/2 ML INJ ONE (10:05)
[2019-06-04] MEDS ORDERED: LIDOCAINE MPF (2%) 20 MG/1 ML VIAL 5 ML ONE (10:05)
[2019-06-04] MEDS ORDERED: methylPREDNISolone ACETATE 40 MG/1 ML INJ ONE (10:08)
[2019-06-04] MEDS ORDERED: LIDOCAINE (1%) 10 MG/1 ML VIAL 20 ML MDV ONE (10:08)
[2019-06-04] MEDS ORDERED: BUPIVACAINE/PF (0.5%) 5 MG/1 ML 30 ML VIAL INFILTRATI ONE ×3 (10:08→10:44)
[2019-06-04] MEDS ORDERED: KETAMINE/STERILE WATER 50 MG/ML SYRINGE ONE (10:23)
[2019-06-04] MEDS ORDERED: LIDOCAINE (1%) 10 MG/1 ML VIAL 20 ML MDV INFILTRATI ONE ×2 (10:41→10:44)
[2019-06-04] MEDS ORDERED: methylPREDNISolone ACETATE 40 MG/1 ML INJ INTRA-ARTI ONE ×2 (10:41→10:44)
[2019-06-04] MEDS ORDERED: ONDANSETRON 4 MG/2 ML INJ ONE (10:50)
[2019-06-04] MEDS ORDERED: KETOROLAC 30 MG/1 ML INJ ONE (10:50)
[2019-06-04] MEDS ORDERED: dexAMETHasone 20 MG/5 ML VIAL ONE (10:50)
[2019-06-04] MEDS ORDERED: hydrALAZINE 20 MG/1 ML INJ IV NR (11:33)
--- NOTE | 2019-06-04 11:35 | Procedure Note ---
Date of procedure: 06/04/19 Pre-op diagnosis: Chronic low back pain Post-op diagnosis: same Procedure: Lumbar radiofrequency ablation at the left L2-5 Procedure The patient was brought to the OR and placed on the Dave frame prone with a pillow place underneath the abdomen to straighten out the lumbar spine next the lumbar spine area was prepped and draped in the usual sterile manner. A timeout procedure done to identify the patient and correct operative site Using C-arm fluoroscopy 4 lumbar pain management introducers placed in the area near the superior articular process junctions to the transverse processes AP and lateral views were used to confirm correct placement of the probes. Next motor nerves were checked to ensure that we were not next to a motor branch following this local anesthetic was used to deaden the area followed by radiofrequency ablation of the medial branch of the dorsal rami of L2 through L5 levels. This step repeated for each level until we had perform all four spots. At the completion of the fourth and final ablation the patient was awakened and was taken to postanesthesia recovery in a stable condition, there were no complications Anesthesia: other (IV sedation) Surgeon: ANA REYES Estimated blood loss: minimal Pathology: none Condition: stable Disposition: PACU
[2019-06-04] MEDS ORDERED: HYDROmorphone 1 MG/1 ML INJ ONE (11:43)
[2019-06-04] MEDS ORDERED: HYDROmorphone 1 MG/1 ML INJ IV PRN (11:53)
[2019-06-04 12:08] VITALS: BP 166/77
--- NOTE | 2019-06-04 14:25 | Post Anesthesia Evaluation ---
- Post Anesthesia Evaluation Patient Participated: Yes Airway Patent: Yes Stable Respiratory Function: Yes Nausea/Vomiting: No Temp > 96.8F: Yes Pain Manageable: Yes Adequeate Hydration: Yes Anesthesia Complications: No Block Receding Appropriately: Not Applicable Patient on Ventilator: No
--- NOTE | 2019-06-04 15:32 | XRay Report ---
LUMBAR SPINE ONE VIEW INDICATION / CLINICAL INFORMATION: LOWER BACK PAIN. COMPARISON: None available. FINDINGS: Single AP view shows needles projected over the left facet joints from L1-2 to L4-5. Signer Name: Norbert Campbell MD Signed: 06/04/2019 3:28 PM Workstation Name: [id number]
== END 2019-06-04 12:49 | disposition home or self-care (01) ==
LOC: OR 06:55
PROVIDERS: ATTEND Orthopaedic Surgery
DX: M54.5 Low back pain (principal); G89.29 Other chronic pain; M47.816 Spondylosis without myelopathy or radiculopathy, lumbar region; I10 Essential (primary) hypertension; K21.9 Gastro-esophageal reflux disease without esophagitis; E66.9 Obesity, unspecified; M19.90 Unspecified osteoarthritis, unspecified site; F41.9 Anxiety disorder, unspecified; F32.9 Major depressive disorder, single episode, unspecified; Z79.899 Other long term (current) drug therapy; Z79.82 Long term (current) use of aspirin; Z90.710 Acquired absence of both cervix and uterus; Z72.89 Other problems related to lifestyle; Z98.890 Other specified postprocedural states; Z86.73 Personal history of transient ischemic attack (TIA), and cerebral infarction without residual deficits
CPT/HCPCS: 64635; 64636; 72100; A4649; J0360; J1030; J1100; J1170; J1885; J2250; J2405; J2704; J3010; J7120